=== PATIENT | female | born 2005 | race Caucasian/White ===

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

== ENCOUNTER 2023-07-08 13:51 | Outpatient (CLI) | payer BC, MEDICAID, SELFPAY ==
[2023-07-08 14:00] VITALS: BMI 34.5
[2023-07-08 14:16] VITALS: BP 108/65; PULSE 113; TEMP 35.9
[2023-07-08 14:32] VITALS: BP 125/74; PULSE 104
[2023-07-08 14:48] VITALS: BP 112/64; PULSE 112
[2023-07-08 15:01] LABS: Nitrazine Paper, PH Negative
== END 2023-07-08 15:00 | disposition home or self-care (01) ==
LOC: OPOB 14:01 → OBGYN 14:02
PROVIDERS: PCP Nurse Practitioner Family; Visit Provider Family Medicine
DX: O26.899 Other specified pregnancy related conditions, unspecified trimester (principal); Z3A.00 Weeks of gestation of pregnancy not specified; R10.9 Unspecified abdominal pain; N89.8 Other specified noninflammatory disorders of vagina
CPT/HCPCS: 59025; 83986; 99211

== ENCOUNTER 2023-07-23 20:08 | Outpatient (CLI) | payer BC, MEDICAID, SELFPAY ==
[2023-07-23] VITALS (7 sets, daily range): BP systolic 118–130; BP diastolic 69–78; PULSE 86–111; RESP 16; TEMP 35.2–35.9; BMI 35.3
[2023-07-23 20:42] LABS: Nitrazine Paper, PH Inconclusive
[2023-07-23 20:53] LABS: Actim Prom Negative
== END 2023-07-23 22:50 | disposition home or self-care (01) ==
LOC: OPOB 20:08 → OBGYN 20:09
PROVIDERS: PCP Nurse Practitioner Family; Visit Provider Family Medicine
DX: O26.899 Other specified pregnancy related conditions, unspecified trimester (principal); Z3A.00 Weeks of gestation of pregnancy not specified; R10.9 Unspecified abdominal pain
CPT/HCPCS: 59025; 83986; 84112; 99211

== ENCOUNTER 2023-07-24 16:07 | Outpatient (CLI) | payer BC, MEDICAID, SELFPAY ==
[2023-07-24 16:07] VITALS: BMI 35.1
[2023-07-24 16:17] VITALS: BP 121/74; PULSE 98
[2023-07-24 16:32] VITALS: BP 113/74; PULSE 103
[2023-07-24 16:46] VITALS: BP 113/74; PULSE 103
== END 2023-07-24 16:47 | disposition home or self-care (01) ==
LOC: OPOB 16:07 → OBGYN 16:08
PROVIDERS: PCP Nurse Practitioner Family; Visit Provider Family Medicine
DX: O26.899 Other specified pregnancy related conditions, unspecified trimester (principal); Z3A.00 Weeks of gestation of pregnancy not specified; R10.9 Unspecified abdominal pain
CPT/HCPCS: 59025; 99211

== ENCOUNTER 2023-07-27 21:33 | Outpatient (CLI) | payer BC, MEDICAID, SELFPAY ==
[2023-07-27 21:27] VITALS: BMI 32.8
[2023-07-27 21:43] VITALS: BP 111/62; PULSE 131
[2023-07-27 22:04] VITALS: BP 132/74; PULSE 88
[2023-07-27 22:23] VITALS: BP 113/55; PULSE 105
[2023-07-27 22:44] VITALS: BP 114/66; PULSE 104
[2023-07-27 23:04] VITALS: BP 119/57; PULSE 109
[2023-07-27 23:47] VITALS: BP 133/70; PULSE 97
[2023-07-28] VITALS (8 sets, daily range): BP systolic 110–137; BP diastolic 56–75; PULSE 76–103
--- NOTE | 2023-07-28 03:41 | PM.OBTRLD ---
OB L&D Triage Visit Information: Date of evaluation: 07/28/23 Comments/Additional reason(s) for visit: The patient is a 2 para 1-0-0-1 at 39 weeks estimated gestational age who presented to the hospital with consistent contractions and increasing abdominal pain. She was evaluated on the OB floor and was noted to have contractions that were hard enough to cause her to breathe through them. Despite that, her cervical exam changed minimally during her stay in the hospital. I evaluated the patient and discussed with her options including going home with the understanding that she could very well be in early labor. After the discussion she elected to go home. Evaluation: monitor accelerations: Present 15x15 station: -3 Vital signs: Vital Signs - 24 hr 07/27/23 21:43 07/27/23 22:04 07/27/23 22:23 Pulse Rate 131 H 88 105 H Blood Pressure 111/62 132/74 113/55 07/27/23 22:44 07/27/23 23:04 07/27/23 23:47 Pulse Rate 104 H 109 H 97 Blood Pressure 114/66 119/57 133/70 07/28/23 00:02 07/28/23 00:17 07/28/23 00:33 Pulse Rate 103 H 98 88 Blood Pressure 129/72 134/75 137/66 07/28/23 01:46 07/28/23 02:01 07/28/23 02:16 Pulse Rate 86 103 H 102 H Blood Pressure 117/61 117/70 111/70 07/28/23 02:31 07/28/23 03:38 Pulse Rate 96 76 Blood Pressure 110/70 128/56 Final Diagnosis Final Diagnosis (1) 39 weeks gestation of : Plan: The patient will be going home. We discussed appropriate times to return to the hospital. She has no further questions Status: Acute Code(s): Z3A.39 - 39 weeks gestation of (2) Uterine contractions: Status: Acute Code(s): O47.9 - False labor, unspecified Coding Level of Care Code Acute Code for Chg Fwd Diagnoses 39 weeks gestation of Z3A.39 Uterine contractions O47.9
== END 2023-07-28 03:40 | disposition home or self-care (01) ==
LOC: OPOB 21:34 → OBGYN 21:36
PROVIDERS: PCP Nurse Practitioner Family; Visit Provider Family Medicine
DX: O47.9 False labor, unspecified (principal); Z3A.39 39 weeks gestation of pregnancy
CPT/HCPCS: 59025; 99211

== ENCOUNTER 2023-07-29 01:47 | Inpatient (IN) | payer BC, MEDICAID, SELFPAY ==
[2023-07-28 21:31] VITALS: BP 126/72; PULSE 115
[2023-07-28 21:45] VITALS: BP 117/72; PULSE 100
[2023-07-28 22:01] VITALS: BMI 33.1
[2023-07-28 22:52] VITALS: BP 112/59; PULSE 95
[2023-07-29] VITALS (59 sets, daily range): BP systolic 91–177; BP diastolic 44–125; PULSE 52–142; RESP 16; TEMP 36.3–36.6; O2SAT 97–100
[2023-07-29 00:29] LABS: Basophils % 0.1 %; Eosinophils % 0.5 %; Lymphocytes # 1.9 10^3/uL (1.5-6.5); Lymphocytes % 21.4 %; Mean Corpuscular HGB Conc 30.6 g/dL (30-55); Mean Corpuscular Hemoglobin 24.8 pg (27-33); Mean Corpuscular Volume 81.1 fl (85-98); Mean Platelet Volume 12.8 fL (7.4-10.4); Monocytes # 0.5 10^3/uL (0.2-0.9); Monocytes % 5.4 %; Neutrophils # 6.35 10^3/uL (1.8-8.0); Neutrophils % 72.4 %; Nucleated Red Blood Cells % 0 %; Platelet Count 204 10^3/cmm (157-399); Red Blood Count 4.07 10^6/uL (3.85-5.65); Red Cell Distribution Width 14.9 % (12.1-15.1); White Blood Count 8.77 10^3/uL (4.5-13.0)
[2023-07-29] MEDS: lactated ringers 1,000 ML 999 ML IV (01:00)
--- NOTE | 2023-07-29 01:54 | ANES.PREANE2 ---
Pre-Anesthetic Assessment Height/Weight: Height 1.63 m Weight 87.543 kg Pulse BP Pulse Ox O2 Del Method 100 119/67 100 Room Air 07/29/23 01:50 07/29/23 01:50 07/29/23 01:43 07/28/23 23:38 Preop Diagnosis: IUP Labor Epidural Familial anesthetic complications: None Was Beta Colton taken within 24 hours: N/A Was Clonidine taken within 24 hours: N/A Last intake: 07/28/232029 MEAL CLEARS- CURRENT Social No alcohol and No tobacco Exam alert, oriented x 3 and clear to auscultation bilaterally Airway Submandibular: within normal limits Cervical ROM: within normal limits Mallampati: Class II Dentition: full History/ROS No significant history except as noted Pulmonary None reported CV/HEM None reported None reported Hepatic None reported GI Gastroesophageal Reflux Disease Metabolic None reported Musc/skel None reported Neuropsych None reported Anesthetic Plan ASA status: 2 Anesthesia: Regional (specify below) Other: Labor Epidural Medications/Allergies Home Medications Medication Instructions Recorded Confirmed Last Taken Type phxedrzz-lnc-Ai-FA 1 mg 1 tab PO DAILY 07/23/23 07/27/23 07/26/23 History tablet Allergies Allergy/AdvReac Type Severity Reaction Status Date / Time No Known Allergies Allergy Verified 07/27/23 21:39 [facility] Anesthesia Medical History (Updated 07/28/23 @ 03:44 by Antonio Santos MD) History of depression No pertinent past medical history neghx: htn,dm,thyroid,dvt/pe PCP: None Surgical History No pertinent past surgical history Family History Grandfather Colon cancer Paternal--dx age 60's Mother Diabetes Denies family history of Ovarian cancer Heart disease Hypercholesteremia Breast cancer Hypertension Uterine cancer Thyroid disease Stroke Social History Smoking and tobacco/nicotine status: never used tobacco/nicotine Substance/Drug Use: never Do you think of yourself as: Straight/Heterosexual Female Reproductive History : 2 Data Anesthesia 07/28/23 23:50 Short CBC 07/28/23 Range/Units 23:50 WBC 8.77 (4.5-13.0) 10^3/uL Hgb 10.10 L (12.4-14.8) g/dL Hct 33.0 L (36-47) % MCV 81.1 L (85-98) fl Plt Count 204 (157-399) 10^3/cmm Neut % (Auto) 72.4 % Neut # (Auto) 6.35 (1.8-8.0) 10^3/uL Blood Bank 07/28/23 23:50 Blood Type O Positive Rho(D) Type Rh positive Antibody Screen Negative Cardiac Studies: No Data to Display Anesthesia Procedures Epidural Time Out Performed: Yes Consents Signed: Procedure Consent Consent: from patient, risks and benefits reviewed and patient agrees to proceed Lumbar Level: L3-L4 Epidural position: sitting Epidural procedure: sterile prep of area, 1% lidocaine to numb the area, negative for paresthesia passed, test dose given, 1.5% xylocaine 1:200k epi, placed PCEA, no systemic response, sterile dressing applied, L.U.D. no apparent complications and 0.2% Ropiavacaine @ mls/hr (10) Additional Comments: DONNA @ 5.5cm , first attempt, - heme -csf. catheter threaded to 12cm with ease. Adequate analgesia achieved.
[2023-07-29] MEDS: ROPivacaine syringe 100 MG/50 ML SYRINGE 10 MG EPIDURAL ×2 (02:00→06:32)
[2023-07-29] MEDS: dextrose 5%-lactated ringers 1,000 ML 125 ML IV ×2 (02:00→09:50)
--- NOTE | 2023-07-29 08:01 | PM.OPHPUD ---
Labor & Delivery H&P Update Date of Procedure: July 29, 2023 Date H&P Performed: 07/20/23 Changes to previous documentation: The patient is having regular contractions and is dilated to 3 cm Admission Diagnosis: 18-year-old 2 para 1-0-0-1 at 39 weeks and 2 days in active labor Preop diagnosis: IUP Planned procedure: Spontaneous vaginal delivery Other information: The patient has had multiple episodes over the last week where she has come in with contractions and was determined that she was only in early labor. Last night she was noted make cervical change with her contractions. Her has been relatively unremarkable. Her lab work is also been relatively unremarkable. Her blood type is O+. Antibody screen is negative. Her drug screen was negative. Her group B strep was negative. Her glucose screen was also negative. The remainder of her infectious disease profile was within normal limits. Related Problem List Diagnoses (1) 39 weeks gestation of : A&P Assessment and plan (1) 39 weeks gestation of : I anticipate routine labor and vaginal delivery. Status: Acute
[2023-07-29] MEDS: oxytocin 30 UNIT/500 ML BAG IV (08:15)
--- NOTE | 2023-07-29 10:41 | PM.DELIVERY ---
Delivery Note: Date of delivery: July 29, 2023 Pre-delivery diagnoses: 18-year-old 2 para 1-0-0-1 at 39 weeks estimated gestational age in active labor Post-delivery diagnoses: Status post spontaneous vaginal delivery Procedure: Spontaneous vaginal delivery Delivering Physician: Antonio Santos Estimated blood loss (mL): 100 Pre-Delivery Course: The patient arrived at the hospital having contractions. She gradually progressed and was given an epidural. An amniotomy was performed. She then progressed to complete without difficulty. Delivery: DELIVERY: The patient progressed to complete without difficulty. She delivered a female with a weight of 6 pounds 8 ounces with Apgars of 8, 9. The baby was delivered from the KRUPA position and placed on the mother's abdomen. The cord was then clamped and cut. There was a nuchal cord x 2 which were reduced prior to delivery of the body. Meconium was noted. The placenta and 3 vessel cord were delivered intact shortly thereafter. The perineum and vaginal vault were carefully examined. No lacerations were noted. Both the mother and the baby were in stable condition. History History History 1 Term Miscarriages/Ectopic Living Children A&P Assessment and plan (1) 39 weeks gestation of : I anticipate routine care. (2) Spontaneous vaginal delivery: Coding Level of Care Code Acute Code for Chg Fwd Diagnoses 39 weeks gestation of Z3A.39 Spontaneous vaginal delivery O80
[2023-07-29] MEDS: HYDROcodone-acetaminophen 5-325 mg Tablet PO ×2 (11:51→18:42)
[2023-07-29] MEDS: benzocaine-menthol 78 gm Canister 1 SPRAY TOPICAL (11:51)
[2023-07-29] MEDS: lanolin oint 7 gm 1 APPLIC TOPICAL (11:51)
--- NOTE | 2023-07-29 14:20 | PC.NURSE ---
assisted pt up to bathroom. lynn care done by pt. pad, mesh underwear, gown changed. pt remains up in room without difficulty. encouraged to pump every 2-3 hours around the clock.
[2023-07-29] MEDS: ibuprofen 800 mg tablet PO ×2 (14:50→20:03)
--- NOTE | 2023-07-29 15:08 | PC.NURSE ---
Pt ambulated to OB-8. Oriented to room/call light. Proud parent pack discussed. Feeding log discussed.
[2023-07-29] MEDS: docusate sodium 100 mg Capsule PO (18:42)
[2023-07-29 22:44] LABS: Hematocrit 26.9 % (36-47); Mean Corpuscular HGB Conc 30.5 g/dL (30-55); Mean Corpuscular Hemoglobin 25.5 pg (27-33); Mean Corpuscular Volume 83.5 fl (85-98); Mean Platelet Volume 13.3 fL (7.4-10.4); Platelet Count 175 10^3/cmm (157-399); Red Blood Count 3.22 10^6/uL (3.85-5.65); Red Cell Distribution Width 15.2 % (12.1-15.1); White Blood Count 8.97 10^3/uL (4.5-13.0)
[2023-07-30 04:00] VITALS: BP 109/69; PULSE 83; RESP 16; TEMP 36.7; O2SAT 98
--- NOTE | 2023-07-30 07:45 | PM.OBGYDC ---
Discharge Providers COMMERCIAL HVAC TECHNICIAN Date of Admission: 07/29/23 01:47 Date of Discharge: 07/30/23 Attending Provider at Admission: Antonio Santos MD Attending Provider at Discharge: Antonio Santos MD Primary Care Provider: Hector Jones Diagnoses at Discharge Discharge Diagnosis (1) 39 weeks gestation of : Status: Acute (2) Spontaneous vaginal delivery: Status: Acute Reason for Visit Reason for Visit: contractions and possible rupture of membranes Hospital Course Hospital Course The patient presented to the hospital in active labor. An epidural was placed. An amniotomy was performed. Pitocin was used to augment her labor. She progressed to complete without difficulty and had an unremarkable vaginal delivery. Her course was also unremarkable. Her bleeding was within normal limits. Her pain was well-controlled. She was breast-fed and formula fed her infant there were no other concerns. Information Peripartum Data: Delivery Method: Vaginal Physical Exam Narrative: The patient is alert. She appears comfortable. Her heart has a regular rate and rhythm with no murmurs appreciated. Lungs are clear to auscultation bilaterally. Her fundus is firm and below the umbilicus. Urinary Catheter Management: [place]: Cath Placed During This Visit: yes, but has since been removed by the nurse Reason for Continuing Indwelling Catheter: Decision to DC Catheter Urinary Catheter Date of Insertion: 07/29/23 Urinary Catheter Time of Insertion: 02:45 Date Urinary Catheter Removed: 07/29/23 Time Urinary Catheter Discontinued: 10:20 History History History 1 Term Miscarriages/Ectopic Living Children Discharge Data Studies Completed and Pending Laboratory Results WBC 8.97 10^3/uL (4.5-13.0) 07/29/23 22:30 RBC 3.22 10^6/uL (3.85-5.65) L 07/29/23 22:30 Hgb 8.20 g/dL (12.4-14.8) L 07/29/23 22:30 Hct 26.9 % (36-47) L 07/29/23 22:30 MCV 83.5 fl (85-98) L 07/29/23 22:30 MCH 25.5 pg (27-33) L 07/29/23 22:30 MCHC 30.5 g/dL (30-55) 07/29/23 22:30 RDW 15.2 % (12.1-15.1) H 07/29/23 22:30 Plt Count 175 10^3/cmm (157-399) 07/29/23 22:30 MPV 13.3 fL (7.4-10.4) H 07/29/23 22:30 Neut % (Auto) 72.4 % 07/28/23 23:50 Lymph % (Auto) 21.4 % 07/28/23 23:50 [place] % (Auto) 5.4 % 07/28/23 23:50 Eos % (Auto) 0.5 % 07/28/23 23:50 Baso % (Auto) 0.1 % 07/28/23 23:50 Neut # (Auto) 6.35 10^3/uL (1.8-8.0) 07/28/23 23:50 Lymph # (Auto) 1.9 10^3/uL (1.5-6.5) 07/28/23 23:50 [place] # (Auto) 0.5 10^3/uL (0.2-0.9) 07/28/23 23:50 Eos # (Auto) 0.0 10^3/uL (0.0-0.8) 07/28/23 23:50 Baso # (Auto) 0.0 10^3/uL (0.0-0.1) 07/28/23 23:50 Nucleated RBC % (auto) 0 % 07/28/23 23:50 Nucleated RBCs # 0.0 /100WBC 07/28/23 23:50 Blood Type O Positive 07/28/23 23:50 Rho(D) Type Rh positive 07/28/23 23:50 Antibody Screen Negative 07/28/23 23:50 Vitals Last Vital Signs Temp 98.1 F 07/30/23 04:00 Pulse 83 07/30/23 04:00 Resp 16 07/30/23 04:00 BP 109/69 07/30/23 04:00 Pulse Ox 98 07/30/23 04:00 O2 Del Method Room Air 07/30/23 04:00 Results Labs OB ([facility]): Obstetrics US 12/02/21 Obstetrics US/Biophysical Profile 11/29/21 Blood Type O Positive 07/28/23 Antibody Screen Negative 07/28/23 Hct 26.9 % (36-47) L 07/29/23 Hgb 8.20 g/dL (12.4-14.8) L 07/29/23 Rho(D) Type Rh positive 07/28/23 Plt Count 175 10^3/cmm (157-399) 07/29/23 Hep Bs Antigen Non-reactive (Nonreactive) 05/26/21 Hepatitis C Antibody Non-reactive (Nonreactive) 05/26/21 Rubella IgG Antibody 84.9 IU/mL (0.0-10.0) H 05/26/21 RPR Nonreactive (Nonreactive) 05/26/21 HIV 1&2 Ab & HIV 1 Ag Non-reactive (Non-Reactiv) 05/26/21 TSH 2.85 uIU/mL (0.27-4.20) 05/26/21 Urine Opiates Screen Negative ng/mL (Negative) 05/26/21 Ur Barbiturates Screen Negative ng/mL (Negative) 05/26/21 Ur Phencyclidine Scrn Negative ng/mL (Negative) 05/26/21 Ur Amphetamines Screen Negative ng/mL (Negative) 05/26/21 U Benzodiazepines Scrn Negative ng/mL (Negative) 05/26/21 Urine Cocaine Screen Negative ng/mL (Negative) 05/26/21 U Marijuana (THC) Screen Negative ng/mL (Negative) 05/26/21 Micro Urine Specimen 11/29/21 Discharge Plan Discharge Patient Disposition: Home Condition: Stable Prescriptions: New ibuprofen 800 mg Tablet 800 mg PO TID Qty: 30 0RF Continued [id number] 1 mg Tablet 1 tab PO DAILY Discharge Orders: Discharge Order (Routine); Ordered 07/30/23 Ordered By: Antonio Santos Referrals: Antonio Santos MD [Physician] - 6 Weeks Discharge Diet: Usual diet Discharge Activity: Resume usual activity Patient Instructions: Opioid Safety Discharge Attestations COMMERCIAL HVAC TECHNICIAN Time Spent in Discharge Care*: less than 30 min Coding Level of Care Code Acute Code for Chg Fwd Diagnoses 39 weeks gestation of Z3A.39 Spontaneous vaginal delivery O80
[2023-07-30] MEDS: ibuprofen 800 mg tablet PO (08:31)
[2023-07-30] MEDS: docusate sodium 100 mg Capsule PO (08:31)
[2023-07-30 08:32] VITALS: BP 101/65; PULSE 96; RESP 14; TEMP 36.6; TEMP 36.7; O2SAT 98
[2023-07-30 11:56] VITALS: BP 112/71; PULSE 89; RESP 15; TEMP 36.6; TEMP 36.7; O2SAT 98
[2023-07-30 13:10] VITALS: BP 112/71; PULSE 89; RESP 15; TEMP 36.7; O2SAT 98
--- NOTE | 2023-07-30 14:18 | ANE.PACU2 ---
Inpatient post-anesthesia follow up: Airway intact: Yes Vital signs: Temperature 98.0 F Pulse Rate 89 Respiratory Rate 15 Blood Pressure 112/71 Pulse Oximetry 98 Oxygen Delivery Me thod Room Air Oxygen Flow Rate Fraction of Inspir ed Oxygen Hydration adequate: Yes Nausea and vomiting: No Pain level: 1 Mental status: Baseline Epidural Start/End: Epidural Start Date: 07/29/23 Epidural Start Time: 01:26 Epidural End Date: 07/29/23 Epidural End Time: 12:09
== END 2023-07-30 13:15 | disposition home or self-care (01) | DRG 807 ==
LOC: OPOB 01:47 → OBGYN 01:48
PROVIDERS: Admitting Provider Family Medicine; PCP Nurse Practitioner Family; Visit Provider Family Medicine
DX: O69.81X0 Labor and delivery complicated by cord around neck, without compression, not applicable or unspecified (principal); Z37.0 Single live birth; O77.0 Labor and delivery complicated by meconium in amniotic fluid; Z3A.39 39 weeks gestation of pregnancy
CPT/HCPCS: 36415; 51702; 59025; 59409; 85025; 85027; 86850; 86900; 98960; 99211; J2590; J2795; J7120; J7121

== ENCOUNTER 2024-02-22 10:17 | Emergency (ER) | payer OTHER, SELFPAY ==
[2024-02-22 10:29] VITALS: BP 136/78; PULSE 84; RESP 16; TEMP 36.8; O2SAT 100
--- NOTE | 2024-02-22 10:29 | ED_ITS ---
HPI - Abdominal Pain 2 General: Chief Complaint: Abdominal Pain Stated Complaint: abd pain NVD Time Seen by Provider: 02/22/24 10:28 History of Present Illness: 18-year-old female presents emergency ro om with complaints of abdominal pain for the last 2 weeks. Her period ended 9 days ago was much heavier than usual with increased discomfort. She did take a home test that was negative. Associated Symptoms: Denies chills, dysuria and fever(s) Related Data Previous Rx's Medication Instructions Recorded promethazine 25 mg tablet 25 mg PO Q6H PRN nausea and 02/22/24 vomiting #20 tabs tramadol 50 mg tablet 50 mg PO Q6H PRN pain #14 tabs 02/22/24 Allergies Allergy/AdvReac Type Severity Reaction Status Date / Time No Known Allergies Allergy Verified 07/27/23 21:39 Review of Systems 2 Const: Denies: fever(s) or chills Card: Denies: chest pain Resp: Denies: dyspnea GI: Denies: abdominal pain : Denies: dysuria, urinary frequency or urinary urgency Musc: Denies: neck pain or back pain Skin/Breast: Denies: rash PFSH ED 2 PFSH: Medical History History of depression No pertinent past medical history neghx: htn,dm,thyroid,dvt/pe PCP: None Surgical History No pertinent past surgical history Family History Grandfather Colon cancer Paternal--dx age 60's Mother Diabetes Denies family history of Ovarian cancer Heart disease Hypercholesteremia Breast cancer Hypertension Uterine cancer Thyroid disease Stroke Social History Smoking and tobacco/nicotine status: never used tobacco/nicotine Substance/Drug Use: never Do you think of yourself as: Straight/Heterosexual Physical Exam 2 Const: GENERAL APPEARANCE: cooperative ORIENTATION/CONSCIOUSNESS: Yes awake, Yes oriented to person, Yes oriented to place and Yes oriented to time HENMT: COMMON NORMALS: normocephalic, atraumatic and hearing grossly normal bilaterally HEAD & SCALP: normocephalic and atraumatic Resp: COMMON NORMALS: normal respiratory effort, No retractions, No use of accessory muscles and clear to auscultation bilaterally AUSCULTATION: clear to auscultation bilaterally Cardio: COMMON NORMALS: regular rate, regular rhythm and No murmurs present (Cardio) RATE: regular rate RHYTHM: regular rhythm GI: COMMON NORMALS: Soft to palpation and No hepatosplenomegaly present A USCULTATION: Yes normoactive bowel sounds PALPATION: Yes Soft to palpation, No Tenderness to palpation present (GI), No Guarding due to palpation present (GI) and Yes No hepatosplenomegaly present Extremity: COMMON NORMALS: normal to inspection, capillary refill normal, no clubbing, cyanosis or edema, no calf tenderness and no pedal edema Neuro: SENSORIUM/ORIENTATION: Yes oriented to person, Yes oriented to place and Yes oriented to time Skin: COMMON NORMALS: no rashes or lesions noted GENERAL SKIN EXAM: no rashes or lesions noted Course 2 Vital Signs: Vital signs: Vital Signs Temperature 98.2 F 02/22/24 10:29 Pulse Rate 84 02/22/24 13:17 Respiratory Rate 16 02/22/24 13:17 Blood Pressure 131/78 02/22/24 13:17 Pulse Oximetry 98 02/22/24 13:17 Oxygen Delivery Me thod Room Air 02/22/24 13:17 MDM - Abdominal Pain Medical Decision Making Labs and imaging reviewed no significant findings CT no significant abnormality on labs either. Patient is having little to no symptoms at this time. 1 possibility that would need further evaluation would be biliary dyskinesia we will set her up for a HIDA scan. She has no acute appendicitis no signs of acute cholecystitis at this time no signs of cystitis or nephrolithiasis. Clear liquid diet advance as tolerated from ST and tramadol as needed for pain return if has further problems. Additionally she did not have a difficulty. Passing clots is not having any now. Patient will be referred to gynecology for further evaluation regarding this. Medical Records I reviewed the patient's medical records. Lab Data I reviewed the patient's lab results. 02/22/24 11:04 02/22/24 11:04 Labs/Radiology: Radiology Impressions Abdomen/Pelvis CT 02/22/24 10:47 IMPRESSION: 1. No acute abdominal or pelvic abnormalities. 2. Normal appendix. 3. No renal obstruction. 4. No free fluid in the pelvis. Laboratory Results WBC 5.51 10^3/uL (4.5-13.0) 02/22/24 11:04 RBC 4.54 10^6/uL (3.85-5.65) 02/22/24 11:04 Hgb 11.80 g/dL (12.4-14.8) L 02/22/24 11:04 Hct 38.8 % (36-47) 02/22/24 11:04 MCV 85.5 fl (85-98) 02/22/24 11:04 MCH 26.0 pg (27-33) L 02/22/24 11:04 MCHC 30.4 g/dL (30-55) 02/22/24 11:04 RDW 15.6 % (12.1-15.1) H 02/22/24 11:04 Plt Count 289 10^3/cmm (157-399) 02/22/24 11:04 MPV 11.3 fL (7.4-10.4) H 02/22/24 11:04 Neut % (Auto) 49.9 % 02/22/24 11:04 Lymph % (Auto) 41.9 % 02/22/24 11:04 [place] % (Auto) 6.0 % 02/22/24 11:04 Eos % (Auto) 1.5 % 02/22/24 11:04 Baso % (Auto) 0.5 % 02/22/24 11:04 Neut # (Auto) 2.75 10^3/uL (1.8-8.0) 02/22/24 11:04 Lymph # (Auto) 2.3 10^3/uL (1.5-6.5) 02/22/24 11:04 [place] # (Auto) 0.3 10^3/uL (0.2-0.9) 02/22/24 11:04 Eos # (Auto) 0.1 10^3/uL (0.0-0.8) 02/22/24 11:04 Baso # (Auto) 0.0 10^3/uL (0.0-0.1) 02/22/24 11:04 Nucleated RBC % (auto) 0 % 02/22/24 11:04 Nucleated RBCs # 0.0 /100WBC 02/22/24 11:04 Sodium 137 mmol/L (136-145) 02/22/24 11:04 Potassium 4.0 mmol/L (3.5-5.1) 02/22/24 11:04 Chloride 102 mmol/L (98-107) 02/22/24 11:04 Carbon Dioxide 25 mmol/L (22-29) 02/22/24 11:04 Anion Gap 14.0 (5-19) 02/22/24 11:04 BUN 13 mg/dL (6-20) 02/22/24 11:04 Creatinine 0.6 mg/dL (0.5-0.9) 02/22/24 11:04 GFR Calculation 127.5 mL/min (90-130) 02/22/24 11:04 Glucose 82 mg/dL (65-115) 02/22/24 11:04 Calculated Osmolality 283 mOsm/kg (285-295) L 02/22/24 11:04 Calcium 8.8 mg/dL (8.5-10.5) 02/22/24 11:04 Total Bilirubin 0.2 mg/dL (0.15-1.2) 02/22/24 11:04 AST 17 U/L (0-32) 02/22/24 11:04 ALT 14 U/L (0-33) 02/22/24 11:04 Alkaline Phosphatase 72 U/L (35-105) 02/22/24 11:04 Total Protein 7.1 g/dL (6.6-8.7) 02/22/24 11:04 Albumin 4.3 g/dL (3.5-5.2) 02/22/24 11:04 Globulin 2.8 g/dL (1.3-4.6) 02/22/24 11:04 Lipase 17 U/L (13-60) 02/22/24 11:04 HCG, Qual Negative (Negative) 02/22/24 11:04 Urine Color Yellow (Yellow) 02/22/24 11:08 Urine Appearance Clear (CLEAR) 02/22/24 11:08 Urine pH 5.5 (5-7) 02/22/24 11:08 Ur Specific [place] 1.031 (1.005-1.030) H 02/22/24 11:08 Urine Protein Negative (Negative) 02/22/24 11:08 Urine Glucose (UA) Negative (Normal) 02/22/24 11:08 Urine Ketones Negative (Negative) 02/22/24 11:08 Urine Blood Negative (Negative) 02/22/24 11:08 Urine Nitrate Negative (Negative) 02/22/24 11:08 Urine Bilirubin Negative (Negative) 02/22/24 11:08 Urine Urobilinogen 0.2 mg/dL (Negative) 02/22/24 11:08 Ur Leukocyte Esterase Negative (Negative) 02/22/24 11:08 Urine RBC 0-2 /hpf (0-2) 02/22/24 11:08 Urine WBC 6-10 /hpf (0-5) 02/22/24 11:08 Ur Squamous Epith Cells 6-10 /hpf (0-5) 02/22/24 11:08 Amorphous Sediment Not Reportable 02/22/24 11:08 Urine Bacteria 1+ /hpf (NONE) H 02/22/24 11:08 Hyaline Casts 4.11 /lpf 02/22/24 11:08 Urine Mucus 3+ /hpf 02/22/24 11:08 All radiology interpretation(s) finalized by discharge Discharge Plan Discharge Patient Disposition: Home Clinical Impression: Abdominal pain Condition: Stable Prescriptions: New tramadol 50 mg tablet 50 mg PO Q6H PRN (Reason: pain) Qty: 14 0RF promethazine 25 mg tablet 25 mg PO Q6H PRN (Reason: nausea and vomiting) Qty: 20 0RF Discharge Orders: Discharge ED (Routine); Ordered 02/22/24 Ordered By: Rod Mason Discharge Diet: Clear Liquid Discharge Activity: Increase activity as tolerated Patient Instructions: Abdominal Pain (ED), Opioid Safety, Pain Management Activity Restrictions/Additional Instructions: Thank you for choosing [facility] for your healthcare needs today. It is very important that you follow up as instructed or that you return to the Emergency Department should you have concerns or if your condition changes or worsens in any way. You are seen in the emergency room for complaints of abdominal pain. Laboratory tests and urine showed normal results no significant findings. CT of the abdomen does not show any acute findings. Will discharge you home we will have you set up for an outpatient HIDA scan to evaluate for biliary dyskinesia as a possible cause of pain. Coding Level of Care Code ED Dental Laboratory Worker for Yefri Romero
[2024-02-22 10:43] VITALS: BP 136/78; PULSE 79; RESP 16; O2SAT 100
--- NOTE | 2024-02-22 10:47 | CT_ITS ---
WS: [id number] CT ABDOMEN AND PELVIS WITH CONTRAST HISTORY: abd pain TECHNIQUE: Imaging performed of the abdomen and pelvis with IV contrast. Single phase imaging of the abdomen. Coronal and sagittal reformats are submitted. All CT scans at [facility] use at [address] one of these dose optimization techniques: automated exposure control; mA and/or kV adjustment per patient size (includes targeted exams where dose is matched to clinical indication); or iterative re construction. IV CONTRAST: Omnipaque 350; 100 mL IV. Oral contrast: No DLP: 803.43 mGy.cm COMPARISON: None available. Lower thorax: Lung bases are clear. Heart is normal size. No hiatal hernia. Liver/biliary system: Normal size with no intrahepatic dilatation. Gallbladder: Normal. No gallstones or wall thickening. No pericholecystic fluid. Pancreas: Normal size pancreas and pancreatic duct. No adjacent inflammation. Spleen: Normal size spleen. No mass or infarct. Adrenal glands: Normal. Right kidney: Normal. Left kidney: Normal. Aorta: Normal. Lymphadenopathy: None. Free fluid: None. GI tract: Nondistended stomach. No small bowel obstruction. Normal appendix. No colitis. Abdominal wall: Fat containing umbilical hernia. Pelvis: No free fluid in the pelvis. Uterus and both ovaries are identified. Ovaries are normal. No a djacent inflammation. Bones: Unremarkable. CT/CT abdomen pelvis w con* [id number] IMPRESSION: 1. No acute abdominal or pelvic abnormalities. 2. Normal appendix. 3. No renal obstruction. 4. No free fluid in the pelvis.
[2024-02-22 11:10] VITALS: BP 136/78; PULSE 75; RESP 16; O2SAT 100
[2024-02-22 11:18] LABS: Bilirubin Urine Negative (Negative); Blood Urine Negative (Negative); Glucose Urine UA Negative (Normal); Ketones Urine Negative (Negative); Leukocyte Esterase Urine Negative (Negative); Nitrate Urine Negative (Negative); Protein Urine Negative (Negative); Urine Appearance Clear (CLEAR); Urine Color Yellow (Yellow); Urobilinogen Urine 0.2 mg/dL (Negative); pH Urine 5.5 (5-7)
[2024-02-22 11:23] LABS: Basophils % 0.5 %; Eosinophils # 0.1 10^3/uL (0.0-0.8); Eosinophils % 1.5 %; Hematocrit 38.8 % (36-47); Lymphocytes # 2.3 10^3/uL (1.5-6.5); Lymphocytes % 41.9 %; Mean Corpuscular HGB Conc 30.4 g/dL (30-55); Mean Corpuscular Volume 85.5 fl (85-98); Mean Platelet Volume 11.3 fL (7.4-10.4); Monocytes # 0.3 10^3/uL (0.2-0.9); Neutrophils # 2.75 10^3/uL (1.8-8.0); Neutrophils % 49.9 %; Nucleated Red Blood Cells % 0 %; Platelet Count 289 10^3/cmm (157-399); Red Blood Count 4.54 10^6/uL (3.85-5.65); Red Cell Distribution Width 15.6 % (12.1-15.1); White Blood Count 5.51 10^3/uL (4.5-13.0)
[2024-02-22 11:23] LABS: Add Urine Microscopic? YES; Bacteria Urine 1+ /hpf; Hyaline Casts Urine 4.11 /lpf; RBC Urine 0-2 /hpf (0-2)
[2024-02-22 11:30] LABS: HCG, Serum Qual Negative (Negative)
[2024-02-22 11:35] LABS: Alanine Aminotransferase 14 U/L (0-33); Albumin Level 4.3 g/dL (3.5-5.2); Alkaline Phosphatase 72 U/L (35-105); Aspartate Amino Transferase 17 U/L (0-32); Blood Urea Nitrogen 13 mg/dL (6-20); Calcium 8.8 mg/dL (8.5-10.5); Carbon Dioxide 25 mmol/L (22-29); Chloride 102 mmol/L (98-107); Creatinine Clr Calc Pharmacy 161.0287; Globulin 2.8 g/dL (1.3-4.6); Glomerular Filtration Rate 127.5 mL/min (90-130); Glucose 82 mg/dL (65-115); Lipase 17 U/L (13-60); Osmolality Calculated 283 mOsm/kg (285-295); Sodium 137 mmol/L (136-145); Total Bilirubin 0.2 mg/dL (0.15-1.2); Total Protein 7.1 g/dL (6.6-8.7)
[2024-02-22 11:39] LABS: Specific Gravity, Urine 1.031 (1.005-1.030)
[2024-02-22 11:42] LABS: Add Urine Culture? No; Mucus Urine 3+ /hpf; UA Slide Review UA Slide Review Perf
[2024-02-22] MEDS: iohexol 350 mg/mL 500 mL Btl (per mL) IV (11:48)
[2024-02-22 12:04] VITALS: BP 131/78; PULSE 82; RESP 16; O2SAT 97
[2024-02-22 13:17] VITALS: BP 131/78; PULSE 84; RESP 16; O2SAT 98
[2024-02-22 14:09] VITALS: BP 137/81; PULSE 77; RESP 16; O2SAT 95
--- NOTE | 2024-02-24 07:26 | DCPLANNER ---
faxed outpatient order to scheduling for er f/u
== END 2024-02-22 14:14 | disposition home or self-care (01) ==
PROVIDERS: Physician Assistant; Emergency Provider Family Medicine
DX: R10.9 Unspecified abdominal pain (principal)
CPT/HCPCS: 36415; 74177; 80053; 81001; 83690; 84703; 85025; 99285

== ENCOUNTER 2024-10-19 18:58 | Emergency (ER) | payer BC, MEDICAID, SELFPAY ==
[2024-10-19 19:25] VITALS: BP 126/83; PULSE 79; RESP 16; TEMP 36.7; O2SAT 100; BMI 38.4
[2024-10-19 19:38] LABS: Basophils % 0.3 %; Eosinophils # 0.1 10^3/uL (0.0-0.8); Eosinophils % 1.4 %; Hematocrit 35.9 % (36-47); Lymphocytes # 2.6 10^3/uL (0.8-4.8); Lymphocytes % 37.4 %; Mean Corpuscular HGB Conc 31.5 g/dL (30-55); Mean Corpuscular Volume 85.7 fl (85-98); Mean Platelet Volume 11.4 fL (7.4-10.4); Monocytes # 0.4 10^3/uL (0.2-0.9); Monocytes % 5.7 %; Neutrophils # 3.89 10^3/uL (1.8-7.7); Neutrophils % 55.2 %; Nucleated Red Blood Cells % 0 %; Platelet Count 245 10^3/cmm (157-399); Red Blood Count 4.19 10^6/uL (3.85-5.65); Red Cell Distribution Width 14.6 % (12.1-15.1); White Blood Count 7.04 10^3/uL (3.29-11.43)
[2024-10-19 19:57] LABS: Alanine Aminotransferase 19 U/L (0-33); Albumin Level 4.1 g/dL (3.5-5.2); Alkaline Phosphatase 74 U/L (35-105); Anion Gap 15.8 (5-19); Aspartate Amino Transferase 18 U/L (0-32); Blood Urea Nitrogen 9 mg/dL (6-20); Carbon Dioxide 22 mmol/L (22-29); Chloride 106 mmol/L (98-107); Globulin 2.9 g/dL (1.3-4.6); Glomerular Filtration Rate 126.2 mL/min (90-130); Glucose 84 mg/dL (65-115); Osmolality Calculated 288 mOsm/kg (285-295); Potassium 3.8 mmol/L (3.5-5.1); Sodium 140 mmol/L (136-145); Total Bilirubin 0.2 mg/dL (0.15-1.2)
--- NOTE | 2024-10-19 19:59 | ED_ITS ---
HPI - Abdominal Pain 2 General: Chief Complaint: Abdominal Pain Stated Complaint: ABD Pain Time Seen by Provider: 10/19/24 19:39 Source: patient Mode of arrival: ambulatory Limitations: no limitations History of Present Illness: Patient is a 19-year-old female who presents to the ED with chief complaint of abdominal pain. She states this has been an ongoing issue starting last December. Patient states she has daily abdominal pain. She states sometimes it will move around involving her right upper abdomen as well as left upper and left lower abdominal quadrants. She sometimes feels like there is a balloon under her right ribs. She has not had any vomiting but often times feels nauseous. She feels like her abdominal pain is crampy in nature. She states she only has approximately 2 bowel movements a week and describes them as loose and diarrhea- like. Patient states she has attempted to cut out meat and dairy without any resolution in her symptoms. Was seen here back in February and had a normal CT scan. She was supposed to follow-up with general surgery but states the referral never got placed. She did see her primary care provider through [facility] as well and had a normal gallbladder ultrasound and Cologuard cancer screening test. MD elicited complaint: abdominal pain Onset (ago): month(s) Pain Consistency: intermittent Location: LUQ, RUQ and LLQ Severity: moderate Quality: cramping Radiation: none Migration to: no migration Exacerbating factors: eating Relieving factors: nothing Associated Symptoms: Reports GI cramping, diarrhea, heartburn and nausea; Denies chills, dysuria and fever(s) Related Data Date of Last Menstrual Period: 10/04/24 Previous Rx's ?Medication ?Instructions ?Recorded promethazine 25 mg tablet 25 mg PO Q6H PRN nausea and 02/22/24 vomiting #20 tabs tramadol 50 mg tablet 50 mg PO Q6H PRN pain #14 ta bs 02/22/24 dicyclomine 10 mg capsule 10 mg PO TID #20 caps Allergies Allergy/AdvReac Type Severity Reaction Status Date / Time No Known Allergies Allergy Verified 10/19/24 19:31 Review of Systems 2 Const: Denies: fever(s), chills, body aches, fatigue or malaise Card: Denies: chest pain Resp: Denies: dyspnea GI: Reports: abdominal pain, nausea, heartburn, diarrhea and GI cramping : Denies: flank pain or dysuria Musc: Denies: neck pain, back pain, extremity pain, extremity swelling or joint swelling Skin/Breast: Denies: rash Neuro: Denies: headache(s), sensory changes or dizziness PFSH ED 2 PFSH: Medical History History of depression No pertinent past medical history neghx: htn,dm,thyroid,dvt/pe PCP: None Surgical History No pertinent past surgical history Family History Grandfather Colon cancer Paternal--dx age 60's Mother Diabetes Denies family history of Ovarian cancer Heart disease Hypercholesteremia Breast cancer Hypertension Uterine cancer Thyroid disease Stroke Social History Smoking and tobacco/nicotine status: never used tobacco/nicotine Substance/Drug Use: never Do you think of yourself as: Straight/Heterosexual Female Reproductive History: Date of last menstrual period: 10/04/24 Physical Exam 2 Const: COMMON NORMALS: no acute distress, no limitations, alert and well nourished GENERAL APPEARANCE: cooperative NUTRITIONAL APPEARANCE: obese ORIENTATION/CONSCIOUSNESS: Yes awake, Yes oriented to person, Yes oriented to place and Yes oriented to time Eye: COMMON NORMALS: no scleral icterus Resp: COMMON NORMALS: normal respiratory effort and clear to auscultation bilaterally AUSCULTATION: clear to auscultation bilaterally Cardio: COMMON NORMALS: regular rate and regular rhythm RATE: regular rate RHYTHM: regular rhythm GI: COMMON NORMALS: Normal to inspection, nondistended, normoactive bowel sounds present, Soft to palpation, No hepatosplenomegaly present and no masses INSPECTION: Yes normal to inspection AUSCULTATION: Yes normoactive bowel sounds PALPATION: Yes Soft to palpation, Yes Tenderness to palpation present (GI) (diffuse, mild, non-surgical ), No Guarding due to palpation present (GI), No Rigid due to palpation and Yes No hepatosplenomegaly present : COMMON NORMALS: Yes no CVA tenderness BLADDER/KIDNEY EXAM: Yes no CVA tenderness Back/Pelvis: COMMON NORMALS: no CVA tenderness Extremity: GENERAL: Yes normal exam except as noted Neuro: SENSORIUM/ORIENTATION: Yes alert, Yes oriented to person, Yes oriented to place and Yes oriented to time Course 2 Vital Signs: Vital signs: Vital Signs Temperature 98.1 F 10/19/24 19:25 Pulse Rate 68 10/19/24 21:25 Respiratory Rate 16 10/19/24 20:30 Blood Pressure 129/73 10/19/24 21:25 Pulse Oximetry 98 10/19/24 21:25 Oxygen Delivery Me thod Room Air 10/19/24 19:25 MDM - Abdominal Pain Medical Decision Making Patient appears no acute distress. Her vital signs are stable. Her blood work is completely nonactionable. UA cloudy with WBCs. She is completely asymptomatic with no UTI-like symptoms. Will culture and hold antibiotic therapy at this time. She is requesting referral to GI at [facility] which I think is reasonable. Medical Records I reviewed the patient's medical records. Lab Data I reviewed the patient's lab results. 10/19/24 19:26 10/19/24 19:26 Labs/Radiology: Laboratory Results WBC 7.04 10^3/uL (3.29-11.43) 10/19/24 19: RBC 4.19 10^6/uL (3.85-5.65) 10/19/24 19:26 Hgb 11.30 g/dL (11.27-16.99) 10/19/24 19:26 Hct 35.9 % (36-47) L 10/19/24 19:26 MCV 85.7 fl (85-98) 10/19/24 19:26 MCH 27.0 pg (27-33) 10/19/24 19:26 MCHC 31.5 g/dL (30-55) 10/19/24 19:26 RDW 14.6 % (12.1-15.1) 10/19/24 19: Plt Count 245 10^3/cmm (157-399) 10/19/24 19: MPV 11.4 fL (7.4-10.4) H 10/19/24 19:26 Neut % (Auto) 55.2 % 10/19/24 19:26 Lymph % (Auto) 37.4 % 10/19/24 19:26 Gray % (Auto) 5.7 % 10/19/24 19:26 Eos % (Auto) 1.4 % 10/19/24 19:26 Baso % (Auto) 0.3 % 10/19/24 19:26 Neut # (Auto) 3.89 10^3/uL (1.8-7.7) 10/19/24 19:26 Lymph # (Auto) 2.6 10^3/uL (0.8-4.8) 10/19/24 19:26 Gray # (Auto) 0.4 10^3/uL (0.2-0.9) 10/19/24 19:26 Eos # (Auto) 0.1 10^3/uL (0.0-0.8) 10/19/24 19: Baso # (Auto) 0.0 10^3/uL (0.0-0.1) 10/19/24 19: Nucleated RBC % (auto) 0 % 10/19/24 19: Nucleated RBCs # 0.0 /100WBC 10/19/24 19: Sodium 140 mmol/L (136-145) 10/19/24 19: Potassium 3.8 mmol/L (3.5-5.1) 10/19/24 19: Chloride 106 mmol/L (98-107) 10/19/24 19: Carbon Dioxide 22 mmol/L (22-29) 10/19/24 19: Anion Gap 15.8 (5-19) 10/19/24 19: BUN 9 mg/dL (6-20) 10/19/24 19: Creatinine 0.6 mg/dL (0.5-0.9) 10/19/24 19:26 GFR Calculation 126.2 mL/min (90-130) 10/19/24 19: Glucose 84 mg/dL (65-115) 10/19/24 19: Calculated Osmolality 288 mOsm/kg (285-295) 10/19/24: Calcium 9.0 mg/dL (8.5-10.5) 10/19/24 19: Total Bilirubin 0.2 mg/dL (0.15-1.2) 10/19/24: AST 18 U/L (0-32) 10/19/24 19:26 ALT 19 U/L (0-33) 10/19/24 19:26 Alkaline Phosphatase 74 U/L (35-105) 10/19/24 19:26 Total Protein 7.0 g/dL (6.6-8.7) 10/19/24 19:26 Albumin 4.1 g/dL (3.5-5.2) 10/19/24 19:26 Globulin 2.9 g/dL (1.3-4.6) 10/19/24 19:26 Urine Color Yellow (Yellow) 10/19/24 19:52 Urine Appearance Cloudy (CLEAR) A 10/19/24 19:52 Urine pH 5.5 (5-7) 10/19/24 19:52 Ur Specific [place] 1.024 (1.005-1.030) 10/19/24 19:52 Urine Protein Negative (Negative) 10/19/24 19:52 Urine Glucose (UA) Negative (Normal) 10/19/24 19:52 Urine Ketones Negative (Negative) 10/19/24 19:52 Urine Blood Negative (Negative) 10/19/24 19:52 Urine Nitrate Negative (Negative) 10/19/24 19:52 Urine Bilirubin Negative (Negative) 10/19/24 19:52 Urine Urobilinogen 1.0 mg/dL (Negative) 10/19/24 19:52 Ur Leukocyte Esterase 1+ (Negative) A 10/19/24 19:52 Urine RBC 0-2 /hpf (0-2) 10/19/24 19:52 Urine WBC 21-50 /hpf (0-5) H 10/19/24 19:52 Ur Squamous Epith Cells 0-5 /hpf (0-5) 10/19/24 19:52 Amorphous Sediment Not Reportable 10/19/24 19:52 Urine Bacteria 1+ /hpf (NONE) H 10/19/24 19:52 Hyaline Casts 0.40 /lpf 10/19/24 19:52 No radiology studies performed this visit Discharge Plan Discharge Patient Disposition: Home Clinical Impression: Chronic abdominal pain Condition: Stable Prescriptions: New dicyclomine 10 mg capsule 10 mg PO TID Qty: 20 0RF No Action tramadol 50 mg tablet 50 mg PO Q6H PRN (Reason: pain) Qty: 14 0RF promethazine 25 mg tablet 25 mg PO Q6H PRN (Reason: nausea and vomiting) Qty: 20 0RF Discharge Orders: Discharge ED (Routine); Ordered 10/19/24 Ordered By: Suzi Calabrese Patient Instructions: Abdominal Pain (ED) Activity Restrictions/Additional Instructions: As we discussed, we will place a referral for [facility] for further evaluation of your symptoms. Print Language: Djiboutian Coding Level of Care Code ED Instructor [facility] for Yefri Romero
[2024-10-19 20:00] LABS: Bilirubin Urine Negative (Negative); Blood Urine Negative (Negative); Glucose Urine UA Negative (Normal); Ketones Urine Negative (Negative); Leukocyte Esterase Urine 1+ (Negative); Nitrate Urine Negative (Negative); Protein Urine Negative (Negative); Specific Gravity, Urine 1.024 (1.005-1.030); Urine Appearance Cloudy (CLEAR); Urine Color Yellow (Yellow); pH Urine 5.5 (5-7)
[2024-10-19 20:01] VITALS: BP 139/83; PULSE 78; O2SAT 100
[2024-10-19 20:05] LABS: Add Urine Microscopic? YES; Bacteria Urine 1+ /hpf; RBC Urine 0-2 /hpf (0-2); Squamous Epithelial Cell Urine 0-5 /hpf (0-5); WBC Urine 21-50 /hpf (0-5)
[2024-10-19 20:22] LABS: Add Urine Culture? Yes
[2024-10-19 20:30] VITALS: BP 134/79; PULSE 88; RESP 16; O2SAT 99
[2024-10-19 21:25] VITALS: BP 129/73; PULSE 68; O2SAT 98
== END 2024-10-19 21:26 | disposition home or self-care (01) ==
PROVIDERS: Emergency Medicine; Emergency Provider Physician Assistant
DX: R10.11 Right upper quadrant pain (principal); R10.12 Left upper quadrant pain; R10.32 Left lower quadrant pain; G89.29 Other chronic pain; R19.7 Diarrhea, unspecified
CPT/HCPCS: 36415; 80053; 81001; 85025; 87086; 99283

== ENCOUNTER → 2025-04-04 16:20 | Outpatient (BNVA) | payer BC, MEDICAID, SELFPAY | PROVIDERS: Visit Provider Obstetrics & Gynecology | DX: R23.2 Flushing (principal); R10.9 Unspecified abdominal pain; R68.89 Other general symptoms and signs; R11.2 Nausea with vomiting, unspecified | CPT/HCPCS: 84439; 84443; 84481 ==